=== PATIENT | male | born 1945 | race Caucasian/White ===

== ENCOUNTER → 2020-09-20 | Outpatient (CLI) | payer MEDICARE ==
[~2020-09-20] MED LIST: ACETAMINOPHEN500 M1 PO; ARICEPT5 MG PO; BUSPIRONE HCL10 MG PO; COREG 25MG TAB25 MG PO; CRESTOR20 MG PO; FLOMAX0.4 MG PO; FUROSEMIDE20 MG PO; IMDUR ER TAB 6060 MG PO; LIPITOR TAB 2020 MG PO; MORGIDOX100 MG PO; NITROSTAT 0.40.4 MG SL; NORVASC 5 MG TAB5 MG PO; PREDNISONE20 MG PO; ST. JOSEPH ASPI81 MG PO; VIT D PO; VITAMIN B 12 SL; VITAMIN B12 SL; VITAMIN D1000 UNI1 PO
== END ==
LOC: KOH-I 09:54
DX: M79.672 Pain in left foot (principal); M40.46 Postural lordosis, lumbar region; M43.16 Spondylolisthesis, lumbar region; M47.816 Spondylosis without myelopathy or radiculopathy, lumbar region; M47.817 Spondylosis without myelopathy or radiculopathy, lumbosacral region; M48.07 Spinal stenosis, lumbosacral region; M43.8X4 Other specified deforming dorsopathies, thoracic region; M19.072 Primary osteoarthritis, left ankle and foot
CPT/HCPCS: 72110; 73564; 73630

== ENCOUNTER 2020-09-26 12:21 | Emergency (ER) | payer MEDICARE, OTHER ==
[~2020-09-26 12:21] MED LIST changes: -ACETAMINOPHEN500 M1 PO; -ARICEPT5 MG PO; -CRESTOR20 MG PO; -FLOMAX0.4 MG PO; -MORGIDOX100 MG PO; -NITROSTAT 0.40.4 MG SL; -PREDNISONE20 MG PO; -ST. JOSEPH ASPI81 MG PO; -VIT D PO; -VITAMIN B 12 SL; -VITAMIN B12 SL
[2020-09-26 13:38] LABS: HEMOGLOBIN 12.9 gm/dl (14.0-17.5); RED BLOOD COUNT 4.04 M/UL (4.20-5.50)
[2020-09-26 14:03] LABS: BUN/CREATININE RATIO 21 (0-10)
[2020-09-26] MEDS ORDERED: MORGIDOX100 MG PO (15:06)
[2020-09-26] MEDS ORDERED: PREDNISONE20 MG PO (15:06)
[2021-02-15] MEDS ORDERED: CRESTOR20 MG PO (09:51)
[2021-02-15] MEDS ORDERED: ST. JOSEPH ASPI81 MG PO (10:40)
[2021-02-15] MEDS ORDERED: VITAMIN B 12 SL (10:41)
[2021-02-15] MEDS ORDERED: VIT D PO (10:42)
[2021-02-15] MEDS ORDERED: VITAMIN B12 SL (10:45)
[2021-02-15] MEDS ORDERED: ARICEPT5 MG PO (10:46)
[2021-02-15] MEDS ORDERED: ACETAMINOPHEN500 M1 PO (10:46)
[2021-02-15] MEDS ORDERED: FLOMAX0.4 MG PO (10:47)
[2021-02-15] MEDS ORDERED: NITROSTAT 0.40.4 MG SL (10:48)
== END 2020-09-26 15:49 | disposition home or self-care (01) ==
LOC: ER1 12:21
PROVIDERS: Physician Assistant
DX: U07.1 COVID-19 (principal); E78.5 Hyperlipidemia, unspecified; J44.9 Chronic obstructive pulmonary disease, unspecified; I12.9 Hypertensive chronic kidney disease with stage 1 through stage 4 chronic kidney disease, or unspecified chronic kidney disease; N18.30 Chronic kidney disease, stage 3 unspecified; Z86.73 Personal history of transient ischemic attack (TIA), and cerebral infarction without residual deficits
CPT/HCPCS: 36415; 71045; 80053; 82550; 82553; 83874; 83880; 84484; 85025; 93005; 99285

== ENCOUNTER → 2021-01-02 | Outpatient (CLI) | payer MEDICARE ==
[~2021-01-02] MED LIST changes: +ACETAMINOPHEN500 M1 PO; +ARICEPT5 MG PO; +CRESTOR20 MG PO; +FLOMAX0.4 MG PO; +MORGIDOX100 MG PO; +NITROSTAT 0.40.4 MG SL; +PREDNISONE20 MG PO; +ST. JOSEPH ASPI81 MG PO; +VIT D PO; +VITAMIN B 12 SL; +VITAMIN B12 SL
== END ==
LOC: KOH-I 10:07
DX: M25.551 Pain in right hip (principal)
CPT/HCPCS: 73502

== ENCOUNTER → 2021-01-22 | Outpatient (CLI) | payer MEDICARE | LOC: KOH-I 14:30 | DX: M51.16 Intervertebral disc disorders with radiculopathy, lumbar region (principal); D64.9 Anemia, unspecified; I25.10 Atherosclerotic heart disease of native coronary artery without angina pectoris; M17.0 Bilateral primary osteoarthritis of knee; F32.9 Major depressive disorder, single episode, unspecified; I10 Essential (primary) hypertension; K21.9 Gastro-esophageal reflux disease without esophagitis; M10.9 Gout, unspecified; E78.5 Hyperlipidemia, unspecified; E03.9 Hypothyroidism, unspecified; F41.9 Anxiety disorder, unspecified; E55.9 Vitamin D deficiency, unspecified; E11.9 Type 2 diabetes mellitus without complications; Z86.010 Personal history of colon polyps | CPT/HCPCS: 72148 ==

== ENCOUNTER → 2021-02-01 | Outpatient (CLI) | payer MEDICARE | LOC: EXRD 13:30 → KOH-I 13:59 → EXRD 13:59 | DX: Z01.818 Encounter for other preprocedural examination (principal); G89.4 Chronic pain syndrome; R60.9 Edema, unspecified | CPT/HCPCS: 73721; 93926 ==

== ENCOUNTER 2021-02-13 17:13 | Emergency (ER) | payer MEDICARE ==
[~2021-02-13 17:13] MED LIST changes: -ACETAMINOPHEN500 M1 PO; -ARICEPT5 MG PO; -CRESTOR20 MG PO; -FLOMAX0.4 MG PO; -NITROSTAT 0.40.4 MG SL; -ST. JOSEPH ASPI81 MG PO; -VIT D PO; -VITAMIN B 12 SL; -VITAMIN B12 SL
[2021-02-13 18:50] LABS: HEMOGLOBIN 13.9 gm/dl (14.0-17.5); RED BLOOD COUNT 4.27 M/UL (4.20-5.50); WHITE BLOOD COUNT 5.1 K/UL (4.5-11.0)
[2021-02-15] MEDS ORDERED: CRESTOR20 MG PO (09:51)
[2021-02-15] MEDS ORDERED: ST. JOSEPH ASPI81 MG PO (10:40)
[2021-02-15] MEDS ORDERED: VITAMIN B 12 SL (10:41)
[2021-02-15] MEDS ORDERED: VIT D PO (10:42)
[2021-02-15] MEDS ORDERED: VITAMIN B12 SL (10:45)
[2021-02-15] MEDS ORDERED: ACETAMINOPHEN500 M1 PO (10:46)
[2021-02-15] MEDS ORDERED: ARICEPT5 MG PO (10:46)
[2021-02-15] MEDS ORDERED: FLOMAX0.4 MG PO (10:47)
[2021-02-15] MEDS ORDERED: NITROSTAT 0.40.4 MG SL (10:48)
== END 2021-02-13 20:55 | disposition left against medical advice (07) ==
LOC: ER1 17:13
PROVIDERS: Emergency Medicine
DX: R55 Syncope and collapse (principal); R42 Dizziness and giddiness; I10 Essential (primary) hypertension; Z20.822 Contact with and (suspected) exposure to COVID-19
CPT/HCPCS: 70450; 71045; 80053; 82550; 82553; 83874; 84484; 85025; 93005; 99284; U0002

== ENCOUNTER → 2021-02-15 | Outpatient (CLI) | payer MEDICARE ==
[~2021-02-15] MED LIST changes: +ACETAMINOPHEN500 M1 PO; +ARICEPT5 MG PO; +CRESTOR20 MG PO; +FLOMAX0.4 MG PO; +NITROSTAT 0.40.4 MG SL; +ST. JOSEPH ASPI81 MG PO; +VIT D PO; +VITAMIN B 12 SL; +VITAMIN B12 SL
[2021-02-15 10:35] LABS: HEMOGLOBIN 13.4 gm/dl (14.0-17.5); RED BLOOD COUNT 4.42 M/UL (4.20-5.50); WHITE BLOOD COUNT 5.2 K/UL (4.5-11.0)
== END ==
LOC: OPSV2 09:00
PROVIDERS: Podiatrist Foot & Ankle Surgery
DX: Z01.812 Encounter for preprocedural laboratory examination (principal); M72.2 Plantar fascial fibromatosis
CPT/HCPCS: 36415; 80048; 85027

== ENCOUNTER → 2021-02-23 | Day surgery (SDC) | payer MEDICARE ==
[2021-02-23 06:59] LABS: HEMOGLOBIN 13.2 gm/dl (14.0-17.5); RED BLOOD COUNT 4.09 M/UL (4.20-5.50); WHITE BLOOD COUNT 5.6 K/UL (4.5-11.0)
== END | disposition home or self-care (01) ==
LOC: OR 06:25
PROVIDERS: Podiatrist Foot & Ankle Surgery
PROC: 0LQP0ZZ Repair Left Lower Leg Tendon, Open Approach (ICD-10-PCS; principal; 2021-02-23 07:45)
PROC: 0J8R0ZZ Division of Left Foot Subcutaneous Tissue and Fascia, Open Approach (ICD-10-PCS; principal; 2021-02-23 07:45)
DX: M72.2 Plantar fascial fibromatosis (principal); M77.32 Calcaneal spur, left foot; M89.9 Disorder of bone, unspecified; I25.10 Atherosclerotic heart disease of native coronary artery without angina pectoris; I10 Essential (primary) hypertension; G47.30 Sleep apnea, unspecified; K21.9 Gastro-esophageal reflux disease without esophagitis; G89.29 Other chronic pain; M54.16 Radiculopathy, lumbar region; M17.0 Bilateral primary osteoarthritis of knee; D64.9 Anemia, unspecified; E11.9 Type 2 diabetes mellitus without complications; E03.9 Hypothyroidism, unspecified; M54.12 Radiculopathy, cervical region; I69.30 Unspecified sequelae of cerebral infarction; M10.9 Gout, unspecified; E55.9 Vitamin D deficiency, unspecified; G47.00 Insomnia, unspecified; E66.9 Obesity, unspecified; Z68.31 Body mass index [BMI] 31.0-31.9, adult; Z20.822 Contact with and (suspected) exposure to COVID-19; Z79.82 Long term (current) use of aspirin; Z79.899 Other long term (current) drug therapy; Z88.8 Allergy status to other drugs, medicaments and biological substances
CPT/HCPCS: 36415; 73610; 76000; 80048; 82962; 85027; C1713; J0690; J1100; J1885; J2001; J2370; J2405; J2704; J2710; J2795; J3010; J3370; J7120; Q4133

== ENCOUNTER 2021-06-18 01:03 | Emergency (ER) | payer MEDICARE ==
[2021-06-18 02:08] LABS: HEMOGLOBIN 13.1 gm/dl (14.0-17.5); RED BLOOD COUNT 4.03 M/UL (4.20-5.50); WHITE BLOOD COUNT 4.7 K/UL (4.5-11.0)
[2021-06-18 02:29] LABS: BUN/CREATININE RATIO 15 (0-10)
== END 2021-06-18 06:40 | disposition home or self-care (01) ==
LOC: ER1 01:03
PROVIDERS: Family Medicine
DX: R07.9 Chest pain, unspecified (principal); I11.9 Hypertensive heart disease without heart failure; E78.5 Hyperlipidemia, unspecified
CPT/HCPCS: 71045; 80053; 82550; 82553; 83874; 84484; 85025; 93005; 99285

== ENCOUNTER → 2022-01-09 | Outpatient (CLI) | payer MEDICARE | LOC: KOH-I 11:17 | DX: M25.551 Pain in right hip (principal) | CPT/HCPCS: 73502 ==

== ENCOUNTER 2022-02-01 20:49 | Emergency (ER) | payer MEDICARE ==
[2022-02-01 21:55] LABS: HEMOGLOBIN 12.8 gm/dl (14.0-17.5); RED BLOOD COUNT 3.97 M/UL (4.20-5.50); WHITE BLOOD COUNT 7.1 K/UL (4.5-11.0)
== END 2022-02-01 23:32 | disposition left against medical advice (07) ==
LOC: ER1 20:49
PROVIDERS: Physician Assistant
DX: I10 Essential (primary) hypertension (principal)
CPT/HCPCS: 70450; 71045; 80053; 82550; 82553; 84484; 85025; 93005; 99281

== ENCOUNTER → 2022-03-21 | Outpatient (CLI) | payer MEDICARE | LOC: US 02-21 09:30 | DX: I10 Essential (primary) hypertension (principal) | CPT/HCPCS: 93975 ==